=== PATIENT | female | born 1960 | race Caucasian/White ===

== ENCOUNTER 2021-05-17 21:29 | Inpatient (IN) | payer MEDICARE, OTHER ==
[~2021-05-17] VITALS: Ht 165.1 cm; Wt 92.5 kg
--- NOTE | 2021-05-17 22:21 | NUR ---
Medically cleared by Dr Montano.
--- NOTE | 2021-05-18 00:23 | NUR ---
Transfered to MHU via wheelchair with no distress noted.
[2021-05-18] MEDS ORDERED: ACETAMINOPHEN 325 MG TABLET PO PRN (00:30)
[2021-05-18] MEDS ORDERED: LORAZEPAM 0.5 MG TABLET PO PRN (00:30)
[2021-05-18] MEDS ORDERED: BLOOD SUGAR DIAGNOSTIC 1 EACH STRIP VI ONE (00:30)
[2021-05-18] MEDS ORDERED: MAGNESIUM HYDROXIDE 30 ML LIQUID UDC PO PRN (00:30)
[2021-05-18] MEDS ORDERED: ZOLPIDEM 5 MG TABLET PO PRN (00:30)
[2021-05-18] MEDS ORDERED: MAG HYDROX/AL HYDROX/SIMETH 30 ML LIQUID UDC PO PRN (00:30)
[2021-05-18 00:39] VITALS: BP 148/96
--- NOTE | 2021-05-18 01:30 | NUR ---
At approx 0030, [facility] 61 [facility] for DTO and GD. Per medical records, patient was found outside her assisted living facility naked, yelling and screaming on the street for approx 25 minutes prior to arrival to [facility] ER. per hold, patient is disorganized and unable to verbalize a plan of care. Upon admission, patient is noted A/O x 2. upon interview, patient is noted delusional with impaired insight and judgment as to her admission to the unit. Patient stated, "I had to run naked so I can release people who are in hell. I have a nice body so I need to show it to the world and help people trapped in hell". then she started crying. she also stated, "I want to see the doctor so i can prove that I am not mentally sick and i don't need to take medication". patient was reassured and redirected. she was reassured for her safety/ She denied SI/HI/AH/VH. Face to face assessment was done, patient reflects what is written on the hold. she was also given her advisement as well as her handbook for patient rights on [facility] facilities. Patient was cooperative with the admission process. She refused flu vaccine. she did not want anyone to be notified of her admission to [facility]. Patient was advised of her hold that will end on 05/20/21 at 1022. patient was informed of unit rules room and her roommate. She is under the care of Dr Begum. will continue with Q15 min checks as per unit protocol.
[2021-05-18 07:30] VITALS: BP 124/67
--- NOTE | 2021-05-18 09:57 | NUR ---
GPS: PT ON BED. DENIES ANY PAIN OR DISCOMFORT. PT SMILES AND ANSWERS BACK PROPERLY WHEN ASKED. ENCOURAGED TO PARTICIPATE WITH GROUP THERAPY. COMPLIANT WITH CARE AND MEDICATION. NO AGITATION AT THIS TIME.
[2021-05-18 15:21] VITALS: BP 161/87
--- NOTE | 2021-05-18 18:35 | NUR ---
GPS: PT QUIET AND AWAKE IN HER ROOM, ISOLATIVE. ENCOURAGED TO PARTICIPATE WITH GROUP THERAPY. PT IN GOOD MOOD AND APPROACHABLE. DENIES ANY SI/HI. DENIES ANY PAIN OR DISCOMFORT.
--- NOTE | 2021-05-18 20:30 | NUR ---
RECEIVED PATIENT IN HER ROOM IN BED. SHE IS NOTED AWAKE A/O X 2. SHE IS NOTED ISOLATED AND WITHDRAWN. SHE IS NOTED WITH IMPAIRED INSIGHT AND JUDGMENT TO HER ADMISSION TO MHU. SHE STATED, "I DON'T LIKE THE DOCTOR HER, HE TOLD ME THAT I WAS SICK BUT I AM NOT SICK AND I TOLD HIM I DON'T TAKE MEDICATIONS BECAUSE I DON'T NEED PILLS". PATIENT DENIED SI/HI/BI/AH HOWEVER; SHE IS NOTED WITH DELUSION OF GRANDIOSE AND SHE IS RESPONDING TO INTERNAL STIMULI SHE WAS OBSERVED TALKING TO HERSELF. PATIENT WAS REASSURED FOR HER SAFETY. SAFETY AND FALL PRECAUTION ARE IN PLACE. SHE REFUSED V/S. SHE REFUSED PO FLUIDS AND SNACKS. PATIENT IS SOMEWHAT REDIRECTABLE. WILL CONTINUE TO MONITOR.
[2021-05-18] MEDS: OLANZAPINE 2.5 MG TABLET PO SCH (21:00)
--- NOTE | 2021-05-18 22:10 | NUR ---
PATIENT REFUSED ZYPREXA 2.5MG PO QHS. SHE STATED, "I DON'T TAKE MEDICATION". PATIENT WAS INFORMED OF THE IMPORTANCE OF COMPLYING WITH MEDICATION REGIMENT TO IMPROVED HER SYMPTOMS, YET REFUSED. SHE WAS ALSO NOTED NAKED FORM THE WAIST DOWN, SHE STATED, "I NEED TO LET IT AIR". PATIENT WAS PROVIDED WITH A NIGHT GOWN. SHE WAS REDIRECTED BUT SHE IS REFUSING TO COVER HER ABDOMEN. SHE WAS NOTED TALKING TO HERSELF. SHE REMAIN ISOLATIVE TO HER ROOM IN HER BED. WILL CONTINUE TO MONITOR CLOSELY.
[2021-05-19] MEDS: OLANZAPINE 2.5 MG TABLET PO SCH ×3 (08:01→21:00)
--- NOTE | 2021-05-19 08:46 | NUR ---
GPS: PT REFUSED ZYPREXA AM MED. EXPLAINED RISK AND BENEFITS. FLAT AFFECT NOTED, WITHDRAWN AND ISOLATIVE ON BED.
--- NOTE | 2021-05-19 11:42 | NUR ---
MO Admit Source: Pt is brought to [facility] on a 5150 hold for a danger to others. Pt's last residence is [address] [place] [address]. Pt is not able to ascertain if she will return to the same location or information if pt lives alone. Pt stated to not call her brother, Ed and did not provide additional contact info. MO will work with pt and MD to ensure a safe and proper discharge plan for the pt.
--- NOTE | 2021-05-19 11:42 | NUR ---
MO Initial Discharge Note: Pt is brought to [facility] on a 5150 hold for a danger to others. Pt's last residence is [address] [place] [address]. Pt is not able to ascertain if she will return to the same location or information if pt lives alone. Pt stated to not call her brother, Ed and did not provide additional contact info. MO will work with pt and MD to ensure a safe and proper discharge plan for the pt.
--- NOTE | 2021-05-19 17:57 | NUR ---
GPS: PT ISOLATIVE. TAYED IN THE ROOM THE WHOLE DAY. REFUSED PARTICIPATION WITH GROUP THERAPY. PT REFUSED MEDS THIS AM AND ONLY SAID "NO". PT OBSERVED TO BE STARING BLANK ON THE AIR AND LAUGHING, THIS AFTERNOON.
--- NOTE | 2021-05-19 22:00 | NUR ---
Received patient in the her bed. she is noted awake A/o x 2. she is calm and this time but she is a poor historian. She is noted talking to herself and responding to internal stimuli. She refused to take zyprexa 2.5 mg PO QHS. she stated, "No thank you, no, i don't take medication, No thank you, no thank you". patient noted with delusion of grandiosity and impaired insight and judgment [facility] She was informed of the importance to comply with her medication regiment to improved her symptoms, yet continue refusing Zyprexa QHS, Patient was reassured for her safety, safety and fall precaution are in place. She also refused V/S and snacks but was able to accept PO fluids. will continue to monitor,
[2021-05-20] MEDS ORDERED: OLANZAPINE 2.5 MG TABLET PO SCH (09:00)
[2021-05-20] MEDS: OLANZAPINE 5 MG TABLET PO SCH ×2 (09:00→20:34)
--- NOTE | 2021-05-20 09:06 | NUR ---
GPS: PT XYPREXA 2.5MG ALREADY GIVEN AFTER THE MEDICATION DOSE WAS UPDATED TO 5MG. WILL GIVE THE NEW DOSE NEXT TIME. . Addendum: 05/20/21 at 0908 by JOSE R ONEIL RN PHARMACY NOTIFIED
--- NOTE | 2021-05-20 09:28 | NUR ---
GPS: PT NOW ON VOLUNTARY HOLD.
[2021-05-20 15:51] LABS: HEMATOCRIT 40.7 % (31.2-41.9); MEAN CORPUSCULAR HEMOGLOBIN 28.3 uug (24.7-32.8); MEAN CORPUSCULAR VOLUME 87.2 fL (75.5-95.3); PLATELET COUNT (AUTO) 228 K/uL (179-408)
[2021-05-20 16:18] LABS: BILIRUBIN,TOTAL 0.2 mg/dL (0.2-1.0); MAGNESIUM 2.2 mg/dL (1.8-2.4); PHOSPHOROUS 2.4 mg/dL (2.5-4.9); POTASSIUM 4.3 mmol/L (3.5-5.1); THYROID STIMULATING HORMONE 0.465 mIU/mL (0.358-3.740); TOTAL PROTEIN, SERUM 6.6 g/dL (6.4-8.2)
[2021-05-20 16:49] VITALS: BP 122/57
--- NOTE | 2021-05-20 18:12 | NUR ---
GPS: PT STARTED TAKING ZYPREXA THIS MORNING. AROUND 1500, PT SEEN OUT OF BED AND STAYED ON THE DOOR ON THE HALLWAY. PT SEEMS TO BE PLEASANT AND SMILE TO NEMATOLOGIST AND STAFF. ENCOURAGING PT MORE TO PARTICIPATE WITH GROUP THERAPY PT NOTED BEING ISOLATIVE AND WITHDRAWN. ANSWERS BACK APPROPRIATELY WHEN ASKED.
--- NOTE | 2021-05-21 04:44 | NUR ---
Received isolative in bed, appearing distracted by internal stimuli at times, compliant with bedtime dose of Zyprexa, but refused PRN Michelleien,stating she doesn't have a problem with falling asleep. Observed several times standing in middle of the room, in the dark, staring into space, for several minutes, each time, needing redirection back to bed. Currently asleep, no distress noted.
[2021-05-21] MEDS: OLANZAPINE 5 MG TABLET PO SCH ×2 (08:30→21:12)
--- NOTE | 2021-05-21 10:49 | NUR ---
Firearms Report: Surgical Coordinator completed and submitted a [employer] firearms report for 5150 a danger to others and grave disability certifications. A copy of report has been placed in patient chart.
--- NOTE | 2021-05-21 15:49 | NUR ---
Received patient sleeping in her room. A/O X 2 to person, place. Pt. affect is withdrawn, isolative, quiet, cooperative with nursing care and compliant with medications. Pt. appearance is disheveled. Ambulates without assistance. Denies SI/HI AH/VH. Requires minimal assistance with ADL. Emotional support given. Fall and safety precautions implemented.
[2021-05-21 20:07] VITALS: BP 109/64
--- NOTE | 2021-05-22 05:00 | NUR ---
Received to care, lying in bed, pleasant upon approach, compliant with her night time medications, but still refusing to take a shower, leave her room, or turn off the light. She was observed to be exposing herself, several times. She also appeared to be distracted by internal stimuli. When she was told it was already after midnight, and a PRN was offered, she said she would sleep when she wanted. Later on in the night, A male patient was found nude, next to her bed, and she was exposing herself, when staff discovered them. The man, who is known to wander the hallway naked, was redirected back to his room. After he left, she refused to explain what happened, and her face became red, with a big smile on her face. She then went to sleep, a little while, afterwards.
[2021-05-22 07:30] VITALS: BP 129/70
[2021-05-22] MEDS: OLANZAPINE 5 MG TABLET PO SCH ×3 (08:09→20:11)
--- NOTE | 2021-05-22 09:38 | NUR ---
PT RECEIVED LYING IN BED RESTING COMFORTABLY. PT REFUSED ALL PO MEDICATIONS THIS AM. SHE IS CATATONIC AND NOT VERBALLY RESPONSIVE. PT WILL JUST STARE AT HOIST WORKER BUT WILL NOT RESPOND TO QUESTIONS AT THIS TIME.
[2021-05-22 16:00] VITALS: BP 128/53
[2021-05-22 20:00] VITALS: BP 153/67
--- NOTE | 2021-05-23 05:01 | NUR ---
Received to care last night, lying in bed, pleasant upon approach, appearing distracted by internal stimuli. Compliant with medications, and staff direction. No episodes of inappropriate sexual behaviors noted. Slept fairly well. Continues to sleep. No distress, noted.
[2021-05-23] MEDS: OLANZAPINE 5 MG TABLET PO SCH ×2 (08:11→12:20)
--- NOTE | 2021-05-23 16:06 | NUR ---
Received patient sleeping in her room. A/O X 2 to person, place. Pt. is hypersexual and spreads her legs whenever she sees a male patient trying to sneak in her room, aroused, and tries to have sex with her unsuccessfully because he has been watched by staff. Patient is isolative, quiet, withdrawn, calm, compliant with medications. Ambulates independently. Denies SI/HI AH/VH. Denies pain. Refuses vital signs. Pt. is encourage to verbalize concerns. Fall and safety precautions implemented.
--- NOTE | 2021-05-23 18:16 | NUR ---
Patient is being transfer to third floor for overflow. Patient is in voluntary status. Report was given to Helena DEL ROSARIO around 18:00. Patient left our unit in a wheel chair with U CLINICAL SOCIAL WORK AIDE around 18:20.
--- NOTE | 2021-05-23 18:30 | NUR ---
Received patient from MHU. Patient is relaxed and cooperative. Vital signs are BP 133/56, HR 83, 92% O2 saturation on room air, and temperature of 98.5
[2021-05-23 20:07] VITALS: BP 137/63
[2021-05-23] MEDS ORDERED: OLANZAPINE 5 MG TABLET PO SCH (21:00)
--- NOTE | 2021-05-23 21:00 | NUR ---
received pt awake watching TV; pt initially uncooperative with meds but able to take her HS meds; pt was observed to be takling off her hospital gown; pt redirected to wear her gown but was refusing; will attempt later to have her clothes on.
[2021-05-24 04:33] VITALS: BP 129/66
--- NOTE | 2021-05-24 06:43 | NUR ---
pt slept for 6.5 hours total; safety maintained; needs attended.
[2021-05-24 07:30] VITALS: BP 134/66
[2021-05-24] MEDS: OLANZAPINE 5 MG TABLET PO SCH ×2 (08:16→12:23)
--- NOTE | 2021-05-24 13:15 | NUR ---
MO Discharge Note: Pt will be discharged to [facility] ([phone]) [address] [place] [address] via Ambulance transportation at 3PM. MO spoke with admin coordinator, Minnie at the facility who states they are ready to accept the patient today. Pt is aware and agreeable with discharge plans. Pt stated to for there to be no contact with her family. Pt is alert and oriented x1(name), is unable to plan for self-care at this time; however, is willing to accept care at SNF. Pt denies any suicidal or homicidal ideation. Pt will follow-up at the facility with Psychiatrist, Dr. Gaytan and Wad Lubricator, Dr. Sosa. Pt presents with calm mood and congruent affect. PHARMACY: [facility] ([phone]) [address] [place] [address]. Admissions stated pt will be in room 6A.
[2021-05-24 16:00] VITALS: BP 121/52
--- NOTE | 2021-05-24 16:30 | NUR ---
GPS: Nursing Notes: Discharge Notes: Patient is awake and responding to her name, cooperative with nursing care, compliant with her medications, following staff directions, denies SI/HI, denies AH/VH, denies pain or discomfort, denies SOB, discharge to [facility] at [id number] [place] [address] [phone] , report given to CARIN [place] supervisor blasting, took all her belongings with her, transported to facility via ambulance, instructions and copy of chart given to ambulance's drive to give to facility, Dr. Gaytan (psychiatrist) and Dr. Sosa (bologna lacer) will follow up at the facility for aftercare.
== END 2021-05-24 16:30 | DRG 885 ==
LOC: ER 21:31 → GPS 23:59 → MEDSURG3 05-23 17:51 → GPSOV3 05-23 18:04
PROVIDERS: ADMIT Psychiatry & Neurology Psychiatry; ATTEND Internal Medicine
DX: F31.2 Bipolar disorder, current episode manic severe with psychotic features (principal); F29 Unspecified psychosis not due to a substance or known physiological condition; E66.9 Obesity, unspecified; E78.5 Hyperlipidemia, unspecified; Z68.33 Body mass index [BMI] 33.0-33.9, adult; Z59.00 Homelessness unspecified; Z88.2 Allergy status to sulfonamides
CPT/HCPCS: 36415; 83735; 84100; 84443; 85025; 97161; A4663; A6209